=== PATIENT | male | born 2000 | race American Indian/Alaskan Native ===

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

== ENCOUNTER 2019-02-26 13:12 | Emergency (ER) | payer BC, MEDICAID ==
--- NOTE | 2019-02-26 14:30 | Event Note ---
ED Screening Note ED Screening Note: bump on penis pmh none This initial assessment/diagnostic orders/clinical plan/treatment(s) is/are subject to change based on patients health status, clinical progression and re- assessment by fellow clinical providers in the ED. Further treatment and workup at subsequent clinical providers discretion. Patient/guardian urged not to elope from the ED as their condition may be serious if not clinically assessed and managed. Initial orders include: std eval
[2019-02-26 14:53] VITALS: BP 136/76
[2019-02-26 15:33] LABS: Bilirubin,Urine NEG (Negative); Blood,Urine NEG (Negative); Color,Urine Yellow (Yellow); Mucus,Urine FEW /HPF; Protein,Urine <15 mg/dL mg/dL (Negative)
--- NOTE | 2019-02-26 16:56 | Emergency Department Report ---
Chief Complaint: Urogenital-Male Stated Complaint: STD CHECK Time Seen by Provider: 02/26/19 14:29 - HPI History of Present Illness: This is a 18-year-old male presents to ED wanting an STD check. Patient denies any fever, chills, nausea vomiting, dysuria, penile discharge or testicular swelling or pain. - ROS Review of Systems: As noted in HPI - Exam Vital Signs: Vital Signs 02/26/19 14:51 Temperature 98.0 F Pulse Rate 75 Respiratory 16 Rate Blood Pressure 136/76 O2 Sat by Pulse 100 Oximetry Physical Exam: General: Alert and oriented 3 Skin: Warm dry no rash no lesions MSE screening note: Focused history and physical exam performed. Due to findings the following was ordered: ED Medical Decision Making - Medical Decision Making 18-year-old male presents for STD screening. I discussed the patient at this is not a medical emergency and he will need to follow up with the primary care physician most outside medical clinic for STD screening. urinalysis was ordered at triage, urinalysis negative. Discussed this findings with the patient. Chlamydia cultures were sent as well. Initial instructions vital signs are normal ED Disposition for MSE Clinical Impression: Screening for STD (sexually transmitted disease) Disposition: DC-01 TO HOME OR SELFCARE Is pt being admited?: No Does the pt Need Aspirin: No Condition: Stable Instructions: Sexually Transmitted Diseases (ED) Referrals: EMILY DE LA FUENTE MD [Primary Care Provider] - 3-5 Days [facility] [Outside] - 3-5 Days [facility] [Outside] - 3-5 Days Forms: Work/School Release Form(ED) Time of Disposition: 16:56
== END 2019-02-26 17:11 | disposition home or self-care (01) ==
LOC: ED 13:12
DX: Z11.3 Encounter for screening for infections with a predominantly sexual mode of transmission (principal)
CPT/HCPCS: 81001; 87591

== ENCOUNTER 2021-06-30 15:49 | Emergency (ER) | payer BC ==
[2021-06-30 15:56] VITALS: BP 129/79
--- NOTE | 2021-06-30 17:36 | Emergency Department Report ---
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 Reports a dull throbbing pain to the area with palpation. No fever chills or sweats. Reports no redness no swelling no wound discharge. No reported immunocompromising conditions. Handedness: left Place: home Improves With: none Worsens With: none Context: injury Associated Symptoms: denies other symptoms - Related Data Previous Rx's Medication Instructions Recorded Last Taken Type Cyclobenzaprine [Flexeril 10 MG 10 mg PO Q8H PRN #12 tablet 04/20/15 Unknown Rx TAB] Ibuprofen [Motrin 800 MG tab] 800 mg PO Q8HR PRN #30 tablet 04/20/15 Unknown Rx Chlorhexidine Gluconate [Hibiclens] 5 ml TP BID #240 liquid 06/30/21 Unknown Rx Ketorolac [Toradol] 10 mg PO Q6H PRN #15 tablet 06/30/21 Unknown Rx cephALEXin [Keflex] 500 mg PO Q8HR #21 capsule 06/30/21 Unknown Rx Allergies Allergy/AdvReac Type Severity Reaction Status Date / Time No Known Allergies Allergy Verified 06/30/21 15:56 ED Review of Systems ROS: Stated complaint: UNK PIECE STUCK IN HAND Other details as noted in HPI Comment: All other systems reviewed and negative ED Past Medical Hx - Social History Smoking Status: Never Smoker Substance Use Type: Marijuana - Medications Home Medications: Home Medications Medication Instructions Recorded Confirmed Last Taken Type Cyclobenzaprine [Flexeril 10 MG 10 mg PO Q8H PRN #12 tablet 04/20/15 Unknown Rx TAB] Ibuprofen [Motrin 800 MG tab] 800 mg PO Q8HR PRN #30 tablet 04/20/15 Unknown Rx Chlorhexidine Gluconate [Hibiclens] 5 ml TP BID #240 liquid 06/30/21 Unknown Rx Ketorolac [Toradol] 10 mg PO Q6H PRN #15 tablet 06/30/21 Unknown Rx cephALEXin [Keflex] 500 mg PO Q8HR #21 capsule 06/30/21 Unknown Rx ED Physical Exam - General Limitations: No Limitations General appearance: alert, in no apparent distress - Head Head exam: Present: atraumatic, normocephalic - Eye Eye exam: Present: normal appearance - ENT ENT exam: Present: mucous membranes moist - Neck Neck exam: Present: normal inspection - Respiratory Respiratory exam: Present: normal lung sounds bilaterally. Absent: respiratory distress - Cardiovascular Cardiovascular Exam: Present: regular rate, normal rhythm. Absent: systolic murmur, diastolic murmur, rubs, gallop - GI/Abdominal GI/Abdominal exam: Present: soft, normal bowel sounds - Rectal Rectal exam: Present: deferred - Extremities Exam Extremities exam: Present: normal inspection - Back Exam Back exam: Present: normal inspection - Neurological Exam Neurological exam: Present: alert, oriented X3, CN II-XII intact - Psychiatric Psychiatric exam: Present: normal affect, normal mood - Skin Skin exam: Present: warm, dry, intact, normal color, other. Absent: rash ED Course Vital Signs 06/30/21 15:56 Temperature 98 F Pulse Rate 75 Respiratory 18 Rate Blood Pressure 129/79 [Left] O2 Sat by Pulse 98 Oximetry Critical care attestation.: If time is entered above; I have spent that time in minutes in the direct care of this critically ill patient, excluding procedure time. ED Disposition Clinical Impression: Foreign body of hand, left Disposition: HOME / SELF CARE / HOMELESS Is pt being admited?: No Does the pt Need Aspirin: No Condition: Stable Instructions: Sliver Removal, Care After, Skin Foreign Body
== END 2021-06-30 18:34 | disposition home or self-care (01) ==
LOC: ED 15:49
DX: S60.552A Superficial foreign body of left hand, initial encounter (principal); F12.90 Cannabis use, unspecified, uncomplicated; Z79.899 Other long term (current) drug therapy; W45.8XXA Other foreign body or object entering through skin, initial encounter; Y93.89 Activity, other specified; Y92.89 Other specified places as the place of occurrence of the external cause; Y99.8 Other external cause status
CPT/HCPCS: 99282

== ENCOUNTER 2021-07-04 16:01 | Emergency (ER) | payer BC ==
[2021-07-04 16:22] VITALS: BP 119/77
--- NOTE | 2021-07-04 16:27 | Emergency Department Report ---
Suture/Staple Removal - [facility] Chief Complaint: Laceration/Recheck/Suture Stated Complaint: SUTURE REMOVAL Time Seen by Provider: 07/04/21 16:22 Wound Location: left hand ED Review of Systems ROS: Stated complaint: SUTURE REMOVAL Other details as noted in HPI Comment: All other systems reviewed and negative Constitutional: denies: chills, fever Eyes: denies: eye pain, eye discharge, vision change ENT: denies: ear pain, throat pain Respiratory: denies: cough, shortness of breath, wheezing Cardiovascular: denies: chest pain, palpitations Endocrine: no symptoms reported Gastrointestinal: denies: abdominal pain, nausea, diarrhea Genitourinary: denies: urgency, dysuria Musculoskeletal: denies: back pain, joint swelling, arthralgia Skin: denies: rash, lesions Neurological: denies: headache, weakness, paresthesias Psychiatric: denies: anxiety, depression Hematological/Lymphatic: denies: easy bleeding, easy bruising ED Past Medical Hx - Social History Smoking Status: Never Smoker Substance Use Type: Marijuana - Medications Home Medications: Home Medications Medication Instructions Recorded Confirmed Last Taken Type Cyclobenzaprine [Flexeril 10 MG 10 mg PO Q8H PRN #12 tablet 04/20/15 Unknown Rx TAB] Ibuprofen [Motrin 800 MG tab] 800 mg PO Q8HR PRN #30 tablet 04/20/15 Unknown Rx Chlorhexidine Gluconate [Hibiclens] 5 ml TP BID #240 liquid 06/30/21 Unknown Rx Ketorolac [Toradol] 10 mg PO Q6H PRN #15 tablet 06/30/21 Unknown Rx cephALEXin [Keflex] 500 mg PO Q8HR #21 capsule 06/30/21 Unknown Rx Suture Removal Exam - Exam General: Vital signs noted. No distress. Alert and acting appropriately. Wound: No Pathologic Erythema, No Tenderness, No Drainage, No Pus, No Wound Dehiscence Other Systems: All other systems reviewed and are unremarkable. ED Course Vital Signs 07/04/21 16:21 Temperature 99 F Pulse Rate 74 Respiratory 20 Rate Blood Pressure 119/77 [Right] O2 Sat by Pulse 99 Oximetry - Reevaluation(s) Reevaluation #1: 07/04/21 16:26 Patient is speaking in full sentences with no signs of distress noted. ED Recheck MDM - Medical Decision Making This is a 21-year-old male that presents with suture removal. She is stable and was examined by me. Total of 1 suture has been removed and patient tolerated well. No signs of wound dehiscence, drainage, or cellulitis. Patient was referred to Follow-up with a primary care doctor in 3-5 days or if symptoms worsen and continue return to emergency room as soon as possible. At time of discharge, the patient does not seem toxic or ill in appearance. No acute signs of distress noted. Patient agrees to discharge treatment plan of care. No fu rther questions noted by the patient. Critical care attestation.: If time is entered above; I have spent that time in minutes in the direct care of this critically ill patient, excluding procedure time. ED Disposition Clinical Impression: Encounter for removal of sutures Disposition: 01 HOME / SELF CARE / HOMELESS Is pt being admited?: No Does the pt Need Aspirin: No Condition: Stable Additional Instructions: Follow-up with a primary care and orthopedic doctor in 3-5 days or if symptoms worsen and continue return to emergency room as soon as possible. Referrals: PRIMARY MD ELIAZAR [Referring] - 3-5 Days EMILY DE LA FUENTE MD [Staff Physician] - 3-5 Days HILARY CAAL MD [Staff Physician] - 3-5 Days Time of Disposition: 16:27
== END 2021-07-04 17:42 | disposition home or self-care (01) ==
LOC: ED 16:01
DX: Z48.02 Encounter for removal of sutures (principal)

== ENCOUNTER 2021-11-03 01:40 | Emergency (ER) | payer BC ==
[2021-11-03] MEDS ORDERED: HALOPERIDOL LACTATE 5 MG/1 ML INJ IM PRN (02:11)
[2021-11-03] MEDS ORDERED: diphenhydrAMINE 50 MG/ML VIAL IM PRN (02:11)
[2021-11-03 03:00] LABS: Basophils # (Auto) 0.1 K/mm3 (0.0-0.1); Basophils % (Auto) 0.6 % (0.0-1.8); Eosinophils % (Auto) 0.4 % (0.0-4.3); Hematocrit 51.9 % (35.5-45.6); Hemoglobin 17.4 gm/dl (11.8-15.2); Lymphocytes # (Auto) 1.8 K/mm3 (1.2-5.4); Lymphocytes % (Auto) 18.6 % (13.4-35.0); Mean Corpuscular HGB Conc 33 % (32-34); Mean Corpuscular Volume 99 fl (84-94); Monocytes # (Auto) 0.9 K/mm3 (0.0-0.8); Monocytes % (Auto) 9.5 % (0.0-7.3); Platelet Count 202 K/mm3 (140-440); Red Blood Count 5.27 M/mm3 (3.65-5.03); Red Cell Distribution Width 13.3 % (13.2-15.2)
[2021-11-03] MEDS ORDERED: SODIUM CHLORIDE 0.9% 1000 ML 1,000 ML IV ONE ×2 (03:15)
[2021-11-03 03:21] LABS: Alanine Aminotransferase 15 units/L (7-56); Albumin 4.8 g/dL (3.9-5); BUN/Creatinine Ratio 15; Blood Urea Nitrogen 18 mg/dL (9-20); Calcium 9.9 mg/dL (8.4-10.2); Hemolysis Index 15
--- NOTE | 2021-11-03 03:26 | Emergency Department Report ---
HPI - General Chief Complaint: Psych Time Seen by Provider: 11/03/21 02:11 - HPI HPI: Charge nurse triage/[facility] The patient is a 21-year-old male present with a chief complaint of altered mental status. The patient's father states that the patient was found in the neighborhood walking up and down the street behaving in a bizarre fashion. Patient is hyperverbal and speaking nonsensically at times. The father states approximately 2 days ago patient began speaking in a paranoid fashion. Patient does not have a psych history. Family reports they believe the patient smokes marijuana. Patient is unable to tell me the current year ED Past Medical Hx - Past Medical History Previous Medical History?: No - Surgical History Past Surgical History?: No - Family History Family history: no significant - Social History Smoking Status: Never Smoker Substance Use Type: Marijuana - Medications Home Medications: Home Medications Medication Instructions Recorded Confirmed Last Taken Type Cyclobenzaprine [Flexeril 10 MG 10 mg PO Q8H PRN #12 tablet 04/20/15 Unknown Rx TAB] Ibuprofen [Motrin 800 MG tab] 800 mg PO Q8HR PRN #30 tablet 04/20/15 Unknown Rx Chlorhexidine Gluconate [Hibiclens] 5 ml TP BID #240 liquid 06/30/21 Unknown Rx Ketorolac [Toradol] 10 mg PO Q6H PRN #15 tablet 06/30/21 Unknown Rx cephALEXin [Keflex] 500 mg PO Q8HR #21 capsule 06/30/21 Unknown Rx ED Review of Systems ROS: Stated complaint: CHECK OUT RT ARM Other details as noted in HPI Comment: Unobtainable due to pts medical conditions Physical Exam - Physical Exam Vital Signs: Vital Signs 11/03/21 01:44 Temperature 97.5 F L Pulse Rate 147 H Respiratory 20 Rate Blood Pressure 169/92 O2 Sat by Pulse 97 Oximetry Physical Exam: GENERAL: The patient is well-developed well-nourished male standing in room appearing anxious and hyperverbal. [] HEENT: Normocephalic. Atraumatic. Extraocular motions are intact. Patient has moist mucous membranes. NECK: Supple. Trachea midline CHEST/LUNGS: There is no respiratory distress noted. HEART/CARDIOVASCULAR: Regular. There is tachycardia. ABDOMEN: There is no abdominal distention. SKIN: There is no rash. There is no edema. There is no diaphoresis. NEURO: The patient is awake and alert but not oriented to place or time. The patient is not cooperative with neurologic exam. The patient moves all extremities well. The patient has normal speech and gait. GCS 15 MUSCULOSKELETAL: There is no evidence of acute injury. ED Course Vital Signs 11/03/21 01:44 Temperature 97.5 F L Pulse Rate 147 H Respiratory 20 Rate Blood Pressure 169/92 O2 Sat by Pulse 97 Oximetry ED Medical Decision Making - Lab Data Result diagrams: 11/03/21 02:21 11/03/21 02:21 - Radiology Data Radiology results: report reviewed (CT head), image reviewed (CT head) [facility] [address] [place] [address] Cat Scan Report Signed Patient: DAREK IBRAHIM MR#: [id number] : 2000 Acct:[id number] Age/Sex: 21 / M ADM Date: 11/03/21 Loc: ED Attending Dr: Ordering Physician: GÓMEZ GABRIEL MD Date of Service: 11/03/21 Procedure(s): CT head/brain wo con Accession Number(s): [id number] cc: GÓMEZ GABRIEL MD CT HEAD WITHOUT CONTRAST INDICATION / CLINICAL INFORMATION: Altered Mental Status. TECHNIQUE: All CT scans at this location are performed using CT dose reduction for ALARA by means of automated exposure control. COMPARISON: None available. FINDINGS: There is mild motion artifact. HEMORRHAGE: None. EXTRA-AXIAL SPACES: Normal in size and morphology for the patient's age. VENTRICULAR SYSTEM: Normal in size and morphology for the patient's age. CEREBRAL PARENCHYMA: No significant abnormality. No acute territorial infarct. MIDLINE SHIFT / HER NIATION: None. CEREBELLUM / BRAINSTEM: No significant abnormality. ORBITS: Normal as visualized. SOFT TISSUES: No significant abnormality. SKULL: No significant abnormality. PARANASAL SINUSES / MASTOID AIR CELLS: Normal as visualized. ADDITIONAL FINDINGS: None. IMPRESSION: No acute intracranial abno rmality. Signer Name: Imtiaz Rodrigues MD Signed: 11/03/2021 5:47 AM Workstation Name: [id number] Transcribed By: RT Dictated By: Imtiaz Rodrigues MD Electronically Authenticated By: Imtiaz Rodrigues MD Signed Date/Time: 11/03/21546 DD/ 4 TD/TT: - Differential Diagnosis Substance abuse, psychosis, intracranial hemorrhage Critical care attestation.: If time is entered above; I have spent that time in minutes in the direct care of this critically ill patient, excluding procedure time. ED Disposition Clinical Impression: Psychosis Disposition: [address] [place] [address] Is pt being admited?: No Does the pt Need Aspirin: No Condition: Stable Referrals: EMILY DE LA FUENTE MD [Primary Care Provider] - 3-5 Days
[2021-11-03 03:29] LABS: Free T4 (Free Thyroxine) 1.6 ng/dL (0.76-1.46)
--- NOTE | 2021-11-03 05:51 | Cat Scan Report ---
CT HEAD WITHOUT CONTRAST INDICATION / CLINICAL INFORMATION: Altered Mental Status. TECHNIQUE: All CT scans at this location are performed using CT dose reduction for ALARA by means of automated exposure control. COMPARISON: None available. FINDINGS: There is mild motion artifact. HEMORRHAGE: None. EXTRA-AXIAL SPACES: Normal in size and morphology for the patient's age. VENTRICULAR SYSTEM: Normal in size and morphology for the patient's age. CEREBRAL PARENCHYMA: No significant abnormality. No acute territorial infarct. MIDLINE SHIFT / HERNIATION: None. CEREBELLUM / BRAINSTEM: No significant abnormality. ORBITS: Normal as visualized. SOFT TISSUES: No significant abnormality. SKULL: No significant abnormality. PARANASAL SINUSES / MASTOID AIR CELLS: Normal as visualized. ADDITIONAL FINDINGS: None. IMPRESSION: No acute intracranial abnormality. Signer Name: Imtiaz Rodrigues MD Signed: 11/03/2021 5:47 AM Workstation Name: [id number]
--- NOTE | 2021-11-03 10:24 | Consultation ---
History of Present Illness - Reason for Consult Consult date: 11/03/21 Reason for consult: Mental health evaluation - History of Present Psychiatric Illness ED Note: The patient is a 21-year-old male present with a chief complaint of altered mental status. The patient's father states that the patient was found in the neighborhood walking up and down the street behaving in a bizarre fashion. Patient is hyperverbal and speaking nonsensically at times. The father states approximately 2 days ago patient began speaking in a paranoid fashion. Patient does not have a psych history. Family reports they believe the patient smokes marijuana. Patient is unable to tell me the current year. The patient was seen this morning. He is confused and presents with disorganized thinking. He is tangential " I know what real love feel like. " The patient was seen this morning. Diagnoses: PAST MEDICAL HISTORY: unknown Family Psychiatric History: None reported or documented SOCIAL HISTORY REVIEW OF SYSTEMS MENTAL STATUS EXAMINATION Assessment and Plan (1)Unspecified mood disorder Current Visit: Yes Status: Acute 1013 Treatment Plan Zyprexa 5mg po BID The patient needs to follow up with his outpatient psychiatrist and therapist. Continue home meds Disposition: Recommend psychiatric inpatient admission at this time. Will follow. Thanks Case staffed with Dr. Trent Medications and Allergies Medications and Allergies Allergies Allergy/AdvReac Type Severity Reaction Status Date / Time No Known Allergies Allergy Verified 06/30/21 15:56 Home Medications Medication Instructions Recorded Confirmed Last Taken Type Cyclobenzaprine [Flexeril 10 MG 10 mg PO Q8H PRN #12 tablet 04/20/15 Unknown Rx TAB] Ibuprofen [Motrin 800 MG tab] 800 mg PO Q8HR PRN #30 tablet 04/20/15 Unknown Rx Chlorhexidine Gluconate [Hibiclens] 5 ml TP BID #240 liquid 06/30/21 Unknown Rx Ketorolac [Toradol] 10 mg PO Q6H PRN #15 tablet 06/30/21 Unknown Rx cephALEXin [Keflex] 500 mg PO Q8HR #21 capsule 06/30/21 Unknown Rx Active Meds: Active Medications Diphenhydramine HCl (Diphenhydramine 50 Mg/Ml Vial) 50 mg IM Q6H PRN PRN Reason: Agitation Last Admin: 11/03/21 02:29 Dose: 50 mg Haloperidol Lactate (Haloperidol Lactate 5 Mg/1 Ml Inj) 10 mg IM Q8H PRN PRN Reason: Agitation Last Admin: 11/03/21 02:29 Dose: 10 mg Mental Status Exam - Vital signs Last Vital Signs Temp 97.5 F L 11/03/21 01:44 Pulse 147 H 11/03/21 01:44 Resp 20 11/03/21 01:44 BP 169/92 11/03/21 01:44 Pulse Ox 97 11/03/21 01:44 Results Result Diagrams: 11/03/21 02:21 11/03/21 02:21 Abnormal lab results 11/03/21 11/03/21 11/03/21 Range/Units 02:21 02:21 02:21 RBC 5.27 H (3.65-5.03) M/mm3 Hgb 17.4 H (11.8-15.2) gm/dl Hct 51.9 H (35.5-45.6) % MCV 99 H (84-94) fl MCH 33 H (28-32) pg [place] % (Auto) 9.5 H (0.0-7.3) % [place] # (Auto) 0.9 H (0.0-0.8) K/mm3 Seg Neutrophils % 70.9 H (40.0-70.0) % Potassium (3.6-5.0) mmol/L Carbon Dioxide (22-30) mmol/L Glucose (75-100) mg/dL Total Creatine Kinase (55-170) units/L Free T4 1.60 H (0.76-1.46) ng/dL Salicylates < 0.3 L (2.8-20.0) mg/dL Acetaminophen (10.0-30.0) ug/mL 11/03/21 11/03/21 11/03/21 Range/Units 02:21 02:21 02:21 RBC (3.65-5.03) M/mm3 Hgb (11.8-15.2) gm/dl Hct (35.5-45.6) % MCV (84-94) fl MCH (28-32) pg [place] % (Auto) (0.0-7.3) % [place] # (Auto) (0.0-0.8) K/mm3 Seg Neutrophils % (40.0-70.0) % Potassium 3.5 L (3.6-5.0) mmol/L Carbon Dioxide 20 L (22-30) mmol/L Glucose 139 H (75-100) mg/dL Total Creatine Kinase 369 H (55-170) units/L Free T4 (0.76-1.46) ng/dL Salicylates (2.8-20.0) mg/dL Acetaminophen 5.0 L (10.0-30.0) ug/mL All other labs normal.
[2021-11-03] MEDS ORDERED: amLODIPine 10 MG TAB PO SCH (11:00)
[2021-11-03] MEDS ORDERED: amLODIPine 5 MG TAB PO SCH (11:00)
[2021-11-03 11:53] LABS: Hyaline Casts,Urine 4 /LPF; Mucus,Urine 3+ /HPF
[2021-11-03 11:54] LABS: Color,Urine Yellow (Yellow)
[2021-11-03 11:57] LABS: Amphetamine Screen,Urine Negative; Benzodiazepines Screen,Urine Negative; Cocaine Screen,Urine Negative; Methadone Screen,Urine Negative; Opiate Screen,Urine Negative
[2021-11-03 11:58] LABS: Bilirubin,Urine Negative (Negative); Blood,Urine Negative (Negative)
[2021-11-03 11:59] LABS: Urobilinogen,Urine < 2.0 mg/dL (<2.0)
[2021-11-03 12:33] LABS: Cannabinoid Screen,Urine Positive
--- NOTE | 2021-11-03 20:01 | Emergency Department Report ---
Blank Doc - Documentation Documentation: Family(sister) called concerned because they have not heard from patient and t dixie did not understand why he was being transferred to psychiatric hospital. I clarify that patient was medically cleared and is going to a psychiatric hospital where his mental health can be further treated and stabilized. She voiced understanding. She states that mother has already received name of receiving facility. They were encouraged to reach out to the next facility after transfer for further information regarding status and treatment
[2021-11-03 22:57] VITALS: BP 153/98
== END 2021-11-03 20:00 ==
LOC: ED 01:40 → EEVIPCON 01:40 → ED 20:00
DX: F29 Unspecified psychosis not due to a substance or known physiological condition (principal); F12.90 Cannabis use, unspecified, uncomplicated
CPT/HCPCS: 36415; 70450; 80053; 80307; 81001; 82550; 84439; 84443; 85025; 96372; 99285; J1200; J1630; 80320; G0480